=== PATIENT | female | born 1955 | race Caucasian/White ===

== ENCOUNTER 2021-03-06 10:23 | Inpatient (IN) | payer OTHER, MEDICAID, SELFPAY ==
[~2021-03-06] VITALS: Ht 170.2 cm; Wt 77.1 kg
[2021-03-06 10:23] VITALS: BP 105/55
--- NOTE | 2021-03-06 10:25 | NUR ---
65 y/o F BIBA from [facility] care "[facility]" c/o actively seizing upon EMS arrival. EMS reports 1 seizure on scene lasting 1 minute; 2nd seizure 1 minute in duration en route in which EMS gave Versed 5mg IM. Pt placed on 10L via NRB and 20G established to L AC. SpO2 98% on 1L by NRB. EMS states pt diagnosed with seizure two weeks ago; seen / evaluated and discharged without medications. AccuChek 148. Lopez in place; adult diaper in place. Pt placed onto desk monitor, gown. SpO2 96% on 10L by NRB, lung sounds CTA; RR 12. Bed locked in lowest position, side rails x 2. Seizure precautions remain in place. PMH: severe IDD, seizures, HTN, HLD, Oh's esophagus, osteoporosis Meds: benztropine, fureosemide, lisinopril, lorazepam, lovastatin, metoprolol, zyprexa, olanzapine, protonix, symbicort A: loxapine
--- NOTE | 2021-03-06 10:25 | NUR ---
Dr. Romero is evaluating pt at bedside
--- NOTE | 2021-03-06 10:30 | NUR ---
PT BIBA TO BED 07.
[2021-03-06] MEDS ORDERED: levETIRAcetam 1,000 MG in NACL 0.9% 100 ML IV ONE (10:40)
--- NOTE | 2021-03-06 10:45 | NUR ---
Blood sample and UA collected, walked to lab. CLS to let CPT Daria know
--- NOTE | 2021-03-06 11:09 | NUR ---
RAD at bedside
[2021-03-06 11:51] LABS: BASOPHILS # (AUTO) 0.1 K/uL (0.00-0.22); BASOPHILS % (AUTO) 1.3 % (0.0-2.0); EOSINOPHILS # (AUTO) 0.1 K/uL (0-0.4); EOSINOPHILS % (AUTO) 1.1 % (0.0-4.0); HEMATOCRIT 37.2 % (36-48); HEMOGLOBIN 12.2 g/dL (12.0-16.0); LYMPHOCYTES % (AUTO) 15.5 % (20.5-51.1); MEAN CORPUSCULAR HEMOGLOBIN 29 pg (27-31); MEAN CORPUSCULAR HGB CONC 33 g/dL (33-37); MEAN CORPUSCULAR VOLUME 87.5 fL (80-94); MONOCYTES # (AUTO) 0.4 K/uL (0.8-1.0); MONOCYTES % (AUTO) 5.8 % (1.7-9.3); NEUTROPHILS # (AUTO) 4.7 K/uL (1.8-7.7); NEUTROPHILS % (AUTO) 76.3 % (42.2-75.2); PLATELET COUNT (AUTO) 143 K/uL (140-450); RED BLOOD CELL COUNT(AUTO) 4.25 MIL/uL (4.20-5.40); RED CELL DISTRIBUTION WIDTH 16.3 % (11.6-13.7); WHITE BLOOD COUNT (AUTO) 6.2 K/uL (4.8-10.8)
[2021-03-06 12:02] LABS: APPEARANCE,URINE CLEAR (CLEAR); BILIRUBIN,URINE NEGATIVE (NEGATIVE); BLOOD, URINE 3+ (NEGATIVE); COLOR,URINE YELLOW (YELLOW); LEUKOCYTE ESTERASE ,URINE NEGATIVE (NEGATIVE); NITRITE, URINE NEGATIVE (NEGATIVE); PH,URINE 5.5 (5.0-9.0); UGLUCOSE NEGATIVE (NEGATIVE)
[2021-03-06 12:10] LABS: RBC,URINE 50-80 /HPF (0-5); WBC,URINE 0-5 /HPF (0-5)
[2021-03-06 12:11] LABS: ANION GAP 12.6 (8-16); CARBON DIOXIDE 28.2 mmol/L (21-32); CREATININE 0.9 mg/dL (0.6-1.3); POTASSIUM 3.8 mmol/L (3.5-5.1)
[2021-03-06 12:14] LABS: ALBUMIN 2.5 g/dL (3.4-5.0); TOTAL BILIRUBIN 0.2 mg/dL (0.0-1.0)
--- NOTE | 2021-03-06 12:30 | NUR ---
Pt on high flow with humidifier @ 8L. SpO2 99%
--- NOTE | 2021-03-06 12:44 | NUR ---
Spoke with Eva (power of ip attorney) who states she will try and send over the advance directive. Rubi provided with status update and requesting to speak with patient via telephone upon waking up. [phone]
--- NOTE | 2021-03-06 13:00 | NUR ---
Pt transported to CT by christine; placed onto 4L by KATHYA. SpO2 96%.
--- NOTE | 2021-03-06 13:15 | NUR ---
Pt returned from CT; placed back onto playground monitor. Seizure precautions remain in place. O2 in place.
[2021-03-06] MEDS ORDERED: AZITHROMYCIN 500 MG in DEXTROSE 5% 250 ML IV ONE (13:20)
[2021-03-06] MEDS ORDERED: cefTRIAXone 1,000 MG VIAL ONE (14:15)
[2021-03-06] MEDS ORDERED: DEXT 5% / NACL 0.45% 1,000 ML IV ONE (14:55)
[2021-03-06] MEDS ORDERED: AZITHROMYCIN 500 MG INJ VIAL IV ONE (15:39)
--- NOTE | 2021-03-06 17:32 | NUR ---
Spoke with caregiver from [facility]; states patient hospitalized at [facility] for new onset of seizures and discharged on without medications. Neurologist appointment pending. Caregiver reports during seizure episode, patient was asleep for one day before awaking and returning to baseline mentation.
--- NOTE | 2021-03-06 17:41 | NUR ---
EMIL (CAREGIVER) [phone] POINT OF CONTACT FOR STATUS UPDATES
--- NOTE | 2021-03-06 17:42 | NUR ---
EMIL STATES BASELINE: ALERT TO SOUNDS, NON-VERBAL, ABLE TO SIT IN CHAIR, EYE RESPONSIVE TO VOICE.
--- NOTE | 2021-03-06 18:54 | NUR ---
PT WITH ONE BOWEL MOVEMENT; LOS CARE PERFORMED AND DIAPER CHANGED.
--- NOTE | 2021-03-06 19:28 | NUR ---
Report and transfer of care endorsed to ANNA Hanks
--- NOTE | 2021-03-06 23:15 | NUR ---
pt soiled diaper. new diaper and pericare performed. assisted by clarisa
--- NOTE | 2021-03-06 23:55 | NUR ---
pt temp was taked nrectal and it was too low. warm blankets provided and socks put on. bear hugger was placed on patient.
[2021-03-07] MEDS ORDERED: LORazepam 2 MG/ML VIAL ONE (00:38)
[2021-03-07] MEDS ORDERED: LORazepam 2 MG/ML VIAL IVP PRN (00:40)
--- NOTE | 2021-03-07 01:00 | NUR ---
PT HAD SEIZURE. TURNED HEAD TO SIDE . MD NOTIFIED . SEIZURE PRECAUTIONS ENBALED . X2 SIDE RAILS UP PADDED . ORDER ATIVAN. VITAL SIGNS RETURNED TO BASELINE
--- NOTE | 2021-03-07 04:15 | NUR ---
RECTAL TEMP TAKEN PT STILL LOW TEMP. TEMP RAISED ON BEAR HUGGER. ALL VSS. PT IN A SEMI FOWLERS POSITION. EYES CLOSED.
--- NOTE | 2021-03-07 06:41 | NUR ---
PT TEM-P HORTENCIA BY 2 DEGREES. PT KEPT ON BEAR HUGGER WILL CONTINUE TO MONITOR
--- NOTE | 2021-03-07 07:57 | NUR ---
REPORT RECEIVED FROM PHUONG KENT FOR TRANSFER OF CARE
--- NOTE | 2021-03-07 07:59 | NUR ---
Pt report given to HALLIE. Transfer of care at this time.
--- NOTE | 2021-03-07 09:18 | NUR ---
PATIENT HAS BEEN SCREENED AND CATEGORIZED MODERATE NUTRITION RISK. PATIENT WILL BE SEEN WITHIN 3-5 DAYS OF ADMISSION. 03/09/21-03/11/21 REVIEWED BY MIGUEL VIZCARRA RD
--- NOTE | 2021-03-07 11:00 | NUR ---
PT PROVIDED WITH FRESH LINEN AND DIAPER. PT REPOSITIONED FOR COMFORT. BEAR HUGGER REMOVED DUE TO PATIENT RECTAL TEMP 99.9
--- NOTE | 2021-03-07 12:38 | NUR ---
Pt report given to ANNA VILLA. Transfer of care at this time.
--- NOTE | 2021-03-07 12:39 | NUR ---
RECEIVED REPORT FROM ANNA STERLING. TRANSFER OF CARE AT THIS TIME.
[2021-03-07] MEDS ORDERED: ONDANSETRON 4 MG/2 ML VIAL IVP PRN (12:40)
[2021-03-07] MEDS ORDERED: HYDROcodone/APAP 5/325 MG 1 TAB TAB PO PRN (12:40)
[2021-03-07] MEDS ORDERED: ACETAMINOPHEN 325 MG TAB PO PRN (12:40)
--- NOTE | 2021-03-07 16:00 | NUR ---
PT REPOSITIONED IN BED, HOB ELEVATED, VSS, WILL CONTINUE TO MONITOR.
--- NOTE | 2021-03-07 16:02 | NUR ---
OCCUPATIONAL THERAPIST REHAB MANAGER AT PT BEDSIDE.
[2021-03-07] MEDS ORDERED: cefTRIAXone 1,000 MG VIAL ONE (16:07)
[2021-03-07 17:11] LABS: CREATINE KINASE MB 3.1 ng/mL (0-3.6)
[2021-03-07] MEDS ORDERED: AZITHROMYCIN 500 MG INJ VIAL IV ONE (17:18)
[2021-03-07] MEDS: AZITHROMYCIN 500 MG in DEXTROSE 5% 250 ML IV SCH (17:27)
--- NOTE | 2021-03-07 19:32 | NUR ---
GAVE REPORT TO ANNA MEI. TRANSFER OF CARE AT THIS TIME.
--- NOTE | 2021-03-07 20:45 | NUR ---
SEIZURE NOTED, UPPER EXTREMETIES AND FACIAL TWITCHING. MEDICATED WITH ATIVAN ORDERED
[2021-03-07] MEDS: LORazepam 2 MG/ML VIAL IVP PRN (20:49)
--- NOTE | 2021-03-07 23:00 | NUR ---
RESTING QUIETLY. NO FURTHER SEIZURE ACTIVITY NOTED
--- NOTE | 2021-03-08 02:00 | NUR ---
RESTING IN BED WITH EYES CLOSED. RESPIRATIONS REGULAR AND UMLABORED
--- NOTE | 2021-03-08 08:32 | NUR ---
ECHO CARDIGRAM AT BEDSIDE.
[2021-03-08] MEDS: LORazepam 2 MG/ML VIAL IVP PRN (09:00)
--- NOTE | 2021-03-08 09:08 | NUR ---
1400 ML OF URINE EMPTED FROM F/C.
[2021-03-08 09:28] LABS: BASOPHILS % (AUTO) 0.6 % (0.0-2.0); EOSINOPHILS # (AUTO) 0.1 K/uL (0-0.4); EOSINOPHILS % (AUTO) 2.2 % (0.0-4.0); HEMATOCRIT 34.3 % (36-48); HEMOGLOBIN 11.5 g/dL (12.0-16.0); LYMPHOCYTES # (AUTO) 0.8 K/uL (2.5-16.5); LYMPHOCYTES % (AUTO) 16.3 % (20.5-51.1); MEAN CORPUSCULAR HEMOGLOBIN 29 pg (27-31); MEAN CORPUSCULAR HGB CONC 33 g/dL (33-37); MEAN CORPUSCULAR VOLUME 85.9 fL (80-94); MONOCYTES # (AUTO) 0.4 K/uL (0.8-1.0); MONOCYTES % (AUTO) 8.1 % (1.7-9.3); NEUTROPHILS # (AUTO) 3.6 K/uL (1.8-7.7); NEUTROPHILS % (AUTO) 72.8 % (42.2-75.2); PLATELET COUNT (AUTO) 172 K/uL (140-450); RED CELL DISTRIBUTION WIDTH 16.4 % (11.6-13.7)
[2021-03-08 09:34] LABS: ANION GAP 12.9 (8-16); CARBON DIOXIDE 26.9 mmol/L (21-32); CREATININE 0.5 mg/dL (0.6-1.3); POTASSIUM 3.8 mmol/L (3.5-5.1)
[2021-03-08 09:47] LABS: PHOSPHORUS 2.6 mg/dL (2.5-4.9)
[2021-03-08] MEDS ORDERED: levETIRAcetam 100 MG/ML VIAL IV ONE (11:29)
--- NOTE | 2021-03-08 12:47 | NUR ---
SISTER VANIA [phone].
--- NOTE | 2021-03-08 13:00 | NUR ---
SPOKE WITH DR GALICIA ABOUT SP RECOMENDATION FOR NG TUBE. WANTS THE PT TO BE REEVALUATED WHEN SHE IS MORE AWAKE AND THEN WE CAN CONSIDER NG TUBE.
[2021-03-08] MEDS ORDERED: AZITHROMYCIN 500 MG INJ VIAL IV ONE (14:43)
[2021-03-08 15:21] LABS: CREATINE KINASE MB 5.5 ng/mL (0-3.6)
[2021-03-08] MEDS: AZITHROMYCIN 500 MG in DEXTROSE 5% 250 ML IV SCH (15:38)
[2021-03-08] MEDS ORDERED: cefTRIAXone 1,000 MG VIAL ONE (16:20)
--- NOTE | 2021-03-08 19:28 | NUR ---
REPORT GIVEN TO NITHIN CASTILLO.
--- NOTE | 2021-03-08 22:30 | NUR ---
FED WITH PUREE FOOD, MASHED POTATO, TOLERATED WELL
--- NOTE | 2021-03-09 | NUR ---
Patient appears to be resting comfortably in bed. Vital Signs within normal limits. Respirations even and unlabored.
--- NOTE | 2021-03-09 01:45 | NUR ---
Rubi Pittman called up for update,shes the next of kin , to call from [place],
--- NOTE | 2021-03-09 07:31 | NUR ---
REPORT GIVEN TO ANITA
--- NOTE | 2021-03-09 07:51 | NUR ---
LAB AT BEDSIDE.
--- NOTE | 2021-03-09 08:02 | NUR ---
1500 ML URINE EMPTED FROM F/C.
--- NOTE | 2021-03-09 08:33 | NUR ---
PT FINISHED HER APPLE SAUCE FROM HER BREAKFAST TRAY BUT START CAUGHING WHEN GIVEN OATMEAL.
[2021-03-09 09:55] LABS: BASOPHILS % (AUTO) 0.5 % (0.0-2.0); EOSINOPHILS # (AUTO) 0.1 K/uL (0-0.4); EOSINOPHILS % (AUTO) 1.9 % (0.0-4.0); HEMOGLOBIN 12.5 g/dL (12.0-16.0); LYMPHOCYTES # (AUTO) 0.7 K/uL (2.5-16.5); LYMPHOCYTES % (AUTO) 12.2 % (20.5-51.1); MEAN CORPUSCULAR HEMOGLOBIN 29 pg (27-31); MEAN CORPUSCULAR HGB CONC 33 g/dL (33-37); MEAN CORPUSCULAR VOLUME 86.9 fL (80-94); MONOCYTES # (AUTO) 0.3 K/uL (0.8-1.0); MONOCYTES % (AUTO) 5.2 % (1.7-9.3); NEUTROPHILS # (AUTO) 4.4 K/uL (1.8-7.7); NEUTROPHILS % (AUTO) 80.2 % (42.2-75.2); PLATELET COUNT (AUTO) 185 K/uL (140-450); RED BLOOD CELL COUNT(AUTO) 4.37 MIL/uL (4.20-5.40); RED CELL DISTRIBUTION WIDTH 16.3 % (11.6-13.7); WHITE BLOOD COUNT (AUTO) 5.5 K/uL (4.8-10.8)
[2021-03-09 10:08] LABS: ANION GAP 13.5 (8-16); CARBON DIOXIDE 26.4 mmol/L (21-32); CREATININE 0.4 mg/dL (0.6-1.3); POTASSIUM 3.9 mmol/L (3.5-5.1)
--- NOTE | 2021-03-09 11:08 | NUR ---
PT TRASFERED TO BED 121B VIA [facility].
[2021-03-09] MEDS ORDERED: hydrALAZINE 20 MG/ML VIAL IVP PRN (11:25)
[2021-03-09 12:00] VITALS: BP 202/93
--- NOTE | 2021-03-09 12:00 | NUR ---
RECEIVED PT FROM CONSUMER LENDING MANAGER, PT IS MENTALLY CHALLENGE, WITH FLACCID EXTREMITIES, ON RA, IV LINE NOTED ON THE LEFT WRIST G. 22 ON SALINE LOCK, NO SIGN OF DISTRESS NOTED AND WILL CONTINUE TO MONITOR PT.
--- NOTE | 2021-03-09 12:19 | NUR ---
DC PLANNING: GLORIA SPOKE WITH THE PATIENTS SISTER EV BEAL BY PHONE ([phone]). SHE STATES THAT THE PATIENT HAS BEEN IN CARE SINCE SHE WAS 8 AND HAS BEEN AT [facility] FOR ABOUT 8 YEARS. SHE STATES THAT THE PATIENT HAS BEEN DECLINING AND HAS HAD PROBLEMS BREATHING AND GENERALIZED EDEMA AND NOW HAS NEW ONSET SZ DISORDER. SHE WOULD LIKE THE PATIENT TO BE REFERRED TO HOSPICE. GLORIA SPOKE WITH DR GALICIA, ATTENDING MD, ORDER TO REFER PATIENT TO [facility] ([phone]) GIVEN, REFERRAL FAXED TO THEM. GLORIA WILL FOLLOW. Addendum: 03/10/21 at 1200 by Hui Rojas CM DC PLANNING: GLORIA SPOKE WITH DANIEL AT [facility]([phone]), STATES SHE IS WAITING FOR RESCARE TO CONFIRM WHAT DME IS ALLOWED IN FACILITY. GLORIA THEN SPOKE WITH THE FACILITY AND ASKED THAT THE EQUAL EMPLOYMENT OPPORTUNITY OFFICER BRIANDA BE MADE AWARE THAT PATIENT IS READY TO DC AND IS PENDING HER APPROVAL OF HOSPICE ARRANGEMENTS. GLORIA WILL FOLLOW. Addendum: 03/10/21 at 1437 by Hui Rojas CM DC PLANNING: GLORIA SPOKE WITH [facility], THE [facility] HAS TO CHECK AT A REGIONAL LEVEL TO SEE WHAT DME IS ALLOWED IN THE FACILITY. THEY STATE THEY WILL CALL [facility] WHEN THEY HAVE AN ANSWER. GLORIA WILL FOLLOW FOR NEEDS. Addendum: 03/11/21 at 1152 by Hui Rojas DC PLANNING: GLORIA SPOKE WITH THE ATTENDING MD, PATIENT WITH POOR PO INTAKE, GI CONSULT WITH POSSIBLE PEG PLACEMENT BEING CONSIDERED. GLORIA ALSO SPOKE WITH BRIANDA, EQUAL EMPLOYMENT OPPORTUNITY OFFICER FOR THE [facility], THEY ARE SPEAKING WITH THE [facility] REGARDING THE PATIENTS FUTURE CARE. AN RN FROM THE [facility] WILL BE COMING TO EVALUATE THE PATIENT TO SEE WHAT SETTING IS APPROPRIATE FOR HER CONTINUED CARE GIVEN HER HEALTH DECLINE. GLORIA WILL WAIT FOR THE [facility] RECOMMENDATION AND WILL FOLLOW FOR NEEDS.
--- NOTE | 2021-03-09 12:24 | NUR ---
CALLED DR. AYSHA GALICIA AND INFORMED MD THAT PT'S BP IS 214/90 AND 202/93, DR. ONEIL MADE A TELEPHONE ORDER TO GIVE PT HYDRALAZINE 50MG IVP Q6H PRN FOR SBP OF ABOVE 160.
--- NOTE | 2021-03-09 13:15 | NUR ---
EEG IS BEING DONE TO PT NOW ORDERED BY DR. COTTON.
--- NOTE | 2021-03-09 14:08 | NUR ---
PT DESATURATE AT 87% AND O2 WAS PLACED TO PT AT 4L NC.
[2021-03-09] MEDS: AZITHROMYCIN 500 MG in DEXTROSE 5% 250 ML IV SCH (14:12)
[2021-03-09 20:00] VITALS: BP 102/66
--- NOTE | 2021-03-09 20:15 | NUR ---
ENDORSED PT TO NIGHT RN FOR CONTINUITY OF CARE.
--- NOTE | 2021-03-09 20:16 | NUR ---
RECEIVED REPORT FROM AM NURSE. PATIENT IS AWAKE RESTING IN BED. O2 AT 2L NC TOLERATING WELL. NO SOB NOTED RESPIRATION EVEN UNLABORED. ALL SAFETY PRECAUTIONS ARE IN PLACE. CALL LIGHT WITHIN REACH. FLACC 0. WILL CONTINUE TO MONITOR.
[2021-03-10] VITALS: BP 108/78
--- NOTE | 2021-03-10 03:10 | NUR ---
PATIENT SLEEPING NO SOB NOTED . BREATHING REGULAR UNLABORED. CALL LIGHT WITHIN REACH.
[2021-03-10 04:00] VITALS: BP 118/79
[2021-03-10 06:49] LABS: BASOPHILS % (AUTO) 0.4 % (0.0-2.0); EOSINOPHILS # (AUTO) 0.2 K/uL (0-0.4); EOSINOPHILS % (AUTO) 2.1 % (0.0-4.0); HEMATOCRIT 37.3 % (36-48); HEMOGLOBIN 12.5 g/dL (12.0-16.0); LYMPHOCYTES # (AUTO) 0.6 K/uL (2.5-16.5); LYMPHOCYTES % (AUTO) 6.8 % (20.5-51.1); MEAN CORPUSCULAR HEMOGLOBIN 29 pg (27-31); MEAN CORPUSCULAR HGB CONC 34 g/dL (33-37); MEAN CORPUSCULAR VOLUME 86.6 fL (80-94); MONOCYTES # (AUTO) 0.4 K/uL (0.8-1.0); MONOCYTES % (AUTO) 4.8 % (1.7-9.3); NEUTROPHILS # (AUTO) 7.3 K/uL (1.8-7.7); NEUTROPHILS % (AUTO) 85.9 % (42.2-75.2); PLATELET COUNT (AUTO) 203 K/uL (140-450); RED CELL DISTRIBUTION WIDTH 16.1 % (11.6-13.7); WHITE BLOOD COUNT (AUTO) 8.5 K/uL (4.8-10.8)
[2021-03-10 07:04] LABS: ANION GAP 14.7 (8-16); CARBON DIOXIDE 25.3 mmol/L (21-32); CREATININE 0.6 mg/dL (0.6-1.3)
--- NOTE | 2021-03-10 07:37 | NUR ---
ENDORSED PATIENT TO AM NURSE FOR CONTINUITY OF CARE. PATIENT IN STABLE CONDITION.
--- NOTE | 2021-03-10 07:37 | NUR ---
RECEIVED REPORT FROM PIPELINE WELDER NURSE FOR CONTINUITY OF CARE. PT IN BED AT THIS TIME. RESPIRATIONS ARE EVEN AND UNLABORED. NO SIGNS OF DISTRESS NOTED. CALL LIGHT WITHIN REACH. ALL SAFETY MEASURES IN PLACE. WILL CONTINUE TO MONITOR.
[2021-03-10 08:00] VITALS: BP 138/82
[2021-03-10] MEDS: amLODIPine 5 MG TAB PO SCH (08:44)
--- NOTE | 2021-03-10 08:44 | NUR ---
ADMINISTERED SCHEDULED MEDICATIONS. EDUCATED PT ON MEDS ADMINISTERED. NO RESPONSE. CALL LIGHT WITHIN REACH. ALL SAFETY MEASURES IN PLACE. WILL CONTINUE TO MONITOR.
--- NOTE | 2021-03-10 11:20 | NUR ---
ASSISTED WITH CHANGING AND REPOSITIONING PT. PT TOLERATED WELL. WILL CONTINUE TO MONITOR.
--- NOTE | 2021-03-10 13:04 | NUR ---
03/10/21 RD INITIAL ASSESSMENT COMPLETED PLEASE REFER TO NUTRITION ASSESSMENT UNDER CARE ACTIVITY FOR ESTIMATED NUTRITIONAL NEEDS. 1. RECOMMEND VITAL AF 1.2 @ 55 ML/HR -WATER FLUSH 150 ML Q6H -START AT 10 ML/HR AND INCREASE BY 10 ML Q4H TOLERATED -WILL PROVIDE 1584 KCAL, 99 GM PROTEIN AND 1670 ML WATER, MEETING 100% OF ESTIMATED NUTRITIONAL GOALS 2. MONITOR GI SYMPTOMS 3. RD TO FOLLOW-UP 2-3 DAYS, HIGH RISK (ELEVATED D/T TUBE FEEDING) RAJESH PICKARD RD
--- NOTE | 2021-03-10 13:30 | NUR ---
NG TUBE INSERTED. PT TOLERATED WELL. WILL CONTINUE TO MONITOR.
[2021-03-10] MEDS: AZITHROMYCIN 500 MG in DEXTROSE 5% 250 ML IV SCH (14:06)
--- NOTE | 2021-03-10 14:45 | NUR ---
ORDER TO INSERT NG TUBE. WILL INSERT AND RE-ASSESS.
--- NOTE | 2021-03-10 15:00 | NUR ---
PT PULLED OUT NG TUBE. WILL ATTEMPT TO RE-INSERT NG TUBE.
--- NOTE | 2021-03-10 15:30 | NUR ---
NG TUBE INSERTED. PT TOLERATED WELL. ORDERED CHEST X RAY TO VERIFY PLACEMENT. WILL CONTINUE TO MONITOR.
[2021-03-10 16:00] VITALS: BP 132/68
--- NOTE | 2021-03-10 16:35 | NUR ---
PT PULLED OUT NG TUBE ONCE AGAIN. WILL ATTEMPT TO RE-INSERT NG TUBE. WILL CONTINUE TO MONITOR.
--- NOTE | 2021-03-10 19:05 | NUR ---
PT IS IN BED RESTING AT THIS TIME. RESPIRATIONS ARE EVEN AND UNLABORED. NO SIGNS OF DISTRESS NOTED. PT IS STABLE. WILL ENDORSE TO ETCHER PHOTOENGRAVING NURSE.
--- NOTE | 2021-03-10 19:30 | NUR ---
RECEIVED BEDSIDE REPORT FROM DAY SHIFT RN FOR CONTINUITY OF CARE. PT IS SLEEPING IN BED. NO NG TUBE PRESENT. PT IS ON NC 2L. PT IS NOT IN ANY DISTRESS. BED AT THE LOWEST POSITION. HEAD OF BED RAISED. WILL CONTINUE TO MONITOR THE PT.
--- NOTE | 2021-03-10 19:45 | NUR ---
PT GOT A NEW NG TUBE PLACED. PT IS NOT IN ANY DISTRESS. CXR ORDER FOR NG TUBE PLACEMENT. WILL CONTINUE TO MONITOR THE PT.
[2021-03-10 20:00] VITALS: BP 139/68
--- NOTE | 2021-03-11 00:16 | NUR ---
PT IS SLEEPING IN BED. PT IS NOT IN ANY DISTRESS. NC 2L. CHEST RISE AND FALL NOTED. BED AT THE LOWEST POSITION. SEIZURE PRECAUTIONS IN PLACE. ALL SAFETY MEASURES TAKEN. WILL CONTINUE TO MONITOR THE PT.
--- NOTE | 2021-03-11 03:35 | NUR ---
PT IS SLEEPING IN BED. PT IS NOT IN ANY DISTRESS. NO SOB OR LABORED BREATHING NOTED. BED AT THE LOWEST POSITION. HEAD OF BED RAISED. SEIZURE PRECAUTIONS IN PLACE. WILL CONTINUE TO MONITOR THE PT.
[2021-03-11] MEDS: DEXT 5% / NACL 0.45% 1,000 ML IV SCH ×3 (04:00→20:10)
[2021-03-11 06:43] LABS: BASOPHILS % (AUTO) 0.5 % (0.0-2.0); EOSINOPHILS # (AUTO) 0.3 K/uL (0-0.4); EOSINOPHILS % (AUTO) 2.9 % (0.0-4.0); HEMATOCRIT 34.1 % (36-48); HEMOGLOBIN 11.7 g/dL (12.0-16.0); LYMPHOCYTES # (AUTO) 0.6 K/uL (2.5-16.5); MEAN CORPUSCULAR HEMOGLOBIN 30 pg (27-31); MEAN CORPUSCULAR HGB CONC 34 g/dL (33-37); MEAN CORPUSCULAR VOLUME 86.4 fL (80-94); MONOCYTES # (AUTO) 0.4 K/uL (0.8-1.0); MONOCYTES % (AUTO) 3.8 % (1.7-9.3); NEUTROPHILS # (AUTO) 7.9 K/uL (1.8-7.7); NEUTROPHILS % (AUTO) 85.8 % (42.2-75.2); PLATELET COUNT (AUTO) 200 K/uL (140-450); RED BLOOD CELL COUNT(AUTO) 3.95 MIL/uL (4.20-5.40); RED CELL DISTRIBUTION WIDTH 16.7 % (11.6-13.7); WHITE BLOOD COUNT (AUTO) 9.2 K/uL (4.8-10.8)
[2021-03-11 07:01] LABS: ALBUMIN 2.4 g/dL (3.4-5.0); ANION GAP 12.1 (8-16); CARBON DIOXIDE 26.6 mmol/L (21-32); CREATININE 0.5 mg/dL (0.6-1.3); POTASSIUM 3.7 mmol/L (3.5-5.1); TOTAL BILIRUBIN 0.2 mg/dL (0.0-1.0)
--- NOTE | 2021-03-11 07:15 | NUR ---
ENDORSED PT TO DAY SHIFT RN FOR CONTINUITY OF CARE. PT IS STABLE.
--- NOTE | 2021-03-11 07:18 | NUR ---
RECEIVED REPORT FROM ENGINEER SYSTEM ADMINISTRATOR NURSE FOR CONTINUITY OF CARE. PT IS IN BED SLEEPING AT THIS TIME.RESPIRATIONS ARE EVEN AND UNLABORED. NO SIGNS OF DISTRESS NOTED. CALL LIGHT WITHIN REACH. ALL SAFETY MEASURES IN PLACE. WILL CONTINUE TO MONITOR.
[2021-03-11 08:00] VITALS: BP 122/60
--- NOTE | 2021-03-11 08:29 | NUR ---
PT HAS SOFT RESTRAINTS IN PLACE DUE TO PT CONTINUES TO PULL OUT NG TUBE. WILL CONTINUE TO MONITOR.
[2021-03-11] MEDS: amLODIPine 5 MG TAB PO SCH (09:55)
[2021-03-11] MEDS: AZITHROMYCIN 500 MG in DEXTROSE 5% 250 ML IV SCH (14:00)
[2021-03-11] MEDS: LORazepam 2 MG/ML VIAL IVP PRN (14:17)
--- NOTE | 2021-03-11 14:20 | NUR ---
PT HAD SIEZURE 30 SECONDS PATIENT DESATURATED TO 65% PATIENT PLACED ON NONREBREATHER 10 L, PT TOLERATINW EELL 93% , PRN MEDICATION GIVEN AT THIS TIME ALL SAFETY MEASURES ARE IN PLACE
--- NOTE | 2021-03-11 15:00 | NUR ---
MEDICATIONS GIVEN PER MD ORDER, PT EDUCATED AND VERBALIZED UNDERSTANDING ALL SAFETY MEASURES ARE IN PLACE
[2021-03-11 16:00] VITALS: BP 119/65
--- NOTE | 2021-03-11 18:17 | NUR ---
PT'S SISTER NAME EMIL CALL SHE SAID SHE WANTS TO KNOW THE ABOUT HER NUTRITION INTAKE , SHE CONCERN ABOUT THE PT'S DIET . SHE WANTS TO TALK THE NURSE BIJU . I TRIED TO CONNECT BIJU MOBILE PHONE SO MANY TIMES , BUT PER PT'S SISTER NOBODY ANSWER THE CALL . THE PT'S SISTER CALL ME AGAIN AND SHE SAID NOBODY ANSWERING THE CALL . I OFFER TO PT.'S SISTER IF IT IS OK TO HER TO GIVE ME HER CONTACT NUMBERS AND I WILL GIVE TO BIJU HER CONTACT NUMBERS TO BIJU AND BIJU WILL GIVE HER A CALL ONCE SHE GOT TIME . Addendum: 03/11/21 at 1838 by Elza Paz RN THE WORD 'Kathy STEIN IN THE ABOVE NURSE'S NOTES IS AN ERROR ENTRY , INSTEAD OF NIMESH PARRA
--- NOTE | 2021-03-11 18:22 | NUR ---
I GAVE TO BIJU THE CONTACT NUMBERS OF PT.'S SISTER AND I INFORMING BIJU ABOUT THE PT'S SISTER CONCERN - BIJU SAID SHE WILL CALL LATER . I REMINDING TO BIJU DON'T FORGET TO CALL THE SISTER . BIJU VERBALIZES UNDERSTANDING .
--- NOTE | 2021-03-11 18:35 | NUR ---
NG TUBE REMOVED PER ORDERS. PT TOLERATED WELL. WILL CONTINUE TO MONITOR.
--- NOTE | 2021-03-11 18:42 | NUR ---
SPOKE WITH PT SISTER, NIMESH. SISTER STATED THAT SHE HAS BEEN IN CONTACT WITH , AND HAS INFORMED DR THAT PER PT POLST, NO NG OR GT TUBES IN PLACE. COMFORT MEASURES ONLY. NIMESH THEN STATED THAT DUE TO PT CONDITION, SHE IS UNSURE OF WHEN PT WILL PASS AWAY, SO SHE WOULD LIKE FOR STAFF TO CONTACT HER INCASE PT PASSES AWAY. WILL ENDORSE TO NEXT SHIFT.
--- NOTE | 2021-03-11 19:22 | NUR ---
ENDORSED PT TO AWNING INSTALLER NURSE FOR CONTINUITY OF CARE. RESPIRATIONS ARE EVEN. JUST SUCTIONED PT. NO SIGNS OF DISTRESS NOTED.
--- NOTE | 2021-03-11 19:30 | NUR ---
RECEIVED BEDSIDE REPORT FROM DAY SHIFT RN. PT IS SLEEPING IN BED. NONREBREATHER MASK AT 7L. COMFORT MEASURES PROVIDED. ALL SAFETY MEASURES TAKEN. WILL CONTINUE TO MONITOR THE PT.
[2021-03-11 20:00] VITALS: BP 145/79
--- NOTE | 2021-03-11 22:10 | NUR ---
PT SLEEPING IN BED. PT IS NOT IN ANY DISTRESS. BREATHING RHYTHMIC AND SYMMETRICAL. SUCTION PROVIDED NEEDED. COMFORT MEASURES TAKEN. BED AT THE LOWEST POSITION. HEAD OF BED RAISED. ALL SAFETY MEASURES TAKEN. WILL CONTINUE TO MONITOR THE PT.
--- NOTE | 2021-03-12 01:24 | NUR ---
PT IS ASLEEP. PT IS NOT IN ANY DISTRESS. BREATHING SYMMETRICAL AND UNLABORED. SUCTION PROVIDED NEEDED. COMFORT MEASURES PROVIDED. BED AT THE LOWEST POSITION. HEAD OF BED RAISED. ALL SAFETY MEASURES TAKEN. WILL CONTINUE TO MONITOR THE PT.
[2021-03-12 04:00] VITALS: BP 125/73
--- NOTE | 2021-03-12 04:28 | NUR ---
PT IS ASLEEP. NO SIGNS OF DISTRESS. BREATHING RHYTHMIC AND SYMMETRICAL. SEIZURE PRECAUTIONS IN PLACE. COMFORT MEASURES TAKEN. WILL CONTINUE TO MONITOR THE PT.
[2021-03-12] MEDS: DEXT 5% / NACL 0.45% 1,000 ML IV SCH (05:16)
--- NOTE | 2021-03-12 06:55 | NUR ---
CALLED FAMILY TO VERIFY PT IS NOT SUPPOSE TO BE ON ANY IVF. FAMILY DOES NOT WANT PT TO BE ON ANY FEEDING OR FLUIDS. PT STILL HAS IVF ORDER. MESSAGED. DR. GALICIA TO DC'D THE ORDER. WILL FOLLOW UP.
--- NOTE | 2021-03-12 07:00 | NUR ---
FAMILY ASK FOR POLST IF ITS ON THE CHART. POLST IS NOT IN THE CHART. PT WANTS TO SEND A COPY OF THE POLST TO THE HOSPITAL. GAVE THEM THE FAX NUMBER TO SEND IT TO THE HOSPITAL.
[2021-03-12 07:25] LABS: BASOPHILS % (AUTO) 0.1 % (0.0-2.0); EOSINOPHILS % (AUTO) 0.3 % (0.0-4.0); HEMATOCRIT 34.1 % (36-48); HEMOGLOBIN 11.3 g/dL (12.0-16.0); LYMPHOCYTES # (AUTO) 0.3 K/uL (2.5-16.5); LYMPHOCYTES % (AUTO) 2.3 % (20.5-51.1); MEAN CORPUSCULAR HEMOGLOBIN 29 pg (27-31); MEAN CORPUSCULAR HGB CONC 33 g/dL (33-37); MEAN CORPUSCULAR VOLUME 86.8 fL (80-94); MONOCYTES # (AUTO) 0.3 K/uL (0.8-1.0); MONOCYTES % (AUTO) 2.8 % (1.7-9.3); NEUTROPHILS # (AUTO) 11.2 K/uL (1.8-7.7); NEUTROPHILS % (AUTO) 94.5 % (42.2-75.2); PLATELET COUNT (AUTO) 193 K/uL (140-450); RED BLOOD CELL COUNT(AUTO) 3.93 MIL/uL (4.20-5.40); RED CELL DISTRIBUTION WIDTH 16.8 % (11.6-13.7); WHITE BLOOD COUNT (AUTO) 11.8 K/uL (4.8-10.8)
--- NOTE | 2021-03-12 07:30 | NUR ---
ENDORSED TO DAY SHIFT RN FOR CONTINUITY OF CARE. PT IS STABLE.
[2021-03-12 07:34] LABS: ANION GAP 12.2 (8-16); CARBON DIOXIDE 24.4 mmol/L (21-32); CREATININE 0.6 mg/dL (0.6-1.3); POTASSIUM 3.6 mmol/L (3.5-5.1)
[2021-03-12 08:00] VITALS: BP 131/65
[2021-03-12] MEDS ORDERED: MORPHINE SULFATE 50 MG in NACL 0.9% 45 ML IV SCH (08:25)
[2021-03-12] MEDS: amLODIPine 5 MG TAB PO SCH (09:00)
--- NOTE | 2021-03-12 09:21 | NUR ---
SCHEDULED MEDICATIONS DUE NOT GIVEN. PATIENT NPO AND TO BE ON COMFORT CARE. AWAITING FOR MORPHINE DRIP FROM PHARMACY.
[2021-03-12] MEDS ORDERED: MORPHINE SULFATE 50 MG in NACL 0.9% 45 ML IV PRN (09:45)
[2021-03-12] MEDS: MORPHINE SULFATE 100 MG in NACL 0.9% 90 ML IV PRN (10:13)
[2021-03-12] MEDS ORDERED: NACL 0.9% 500 ML IV ONE (15:00)
[2021-03-12 16:00] VITALS: BP 62/31
--- NOTE | 2021-03-12 19:23 | NUR ---
GAVE REPORT TO FOUNTAIN DISPENSER NURSE FOR CONTINUITY OF CARE. PATIENT ON MORPHINE DRIP WITH COMFORT CARE.
--- NOTE | 2021-03-12 19:30 | NUR ---
RECEIVED BEDSIDE REPORT FROM DAY SHIFT RN. PT IS SLEEPING IN BED. SISTER IS BY BEDSIDE. MORPHINE DRIP RUNNING MD ORDER. COMFORT MEASURES TAKEN. BED AT THE LOWEST POSITION. HEAD OF BED RAISED. WILL CONTINUE TO MONITOR THE PT.
[2021-03-12 20:00] VITALS: BP 69/34
--- NOTE | 2021-03-12 23:26 | NUR ---
PT IS SLEEPING. PT IS NOT IN ANY DISTRESS. SISTER STILL BY BEDSIDE. MORPHINE DRIP RUNNING MD ORDER. ALL SAFETY PRECAUTIONS TAKEN. COMFORT MEASURES TAKEN. WILL CONTINUE TO MONITOR THE PT.
--- NOTE | 2021-03-13 02:03 | NUR ---
PT IS SLEEPING IN BED. PT IS NOT IN ANY DISTRESS. BREATHING UNLABORED AND SYMMETRICAL. MORPHINE DRIP RUNNING MD ORDER. COMFORT MEASURES TAKEN. WILL CONTINUE TO MONITOR THE PT.
[2021-03-13] MEDS: MORPHINE SULFATE 100 MG in NACL 0.9% 90 ML IV PRN ×5 (03:06→13:10)
[2021-03-13 04:00] VITALS: BP 75/37
--- NOTE | 2021-03-13 07:30 | NUR ---
ENDORSED PT TO DAY SHIFT RN FOR CONTINUITY OF CARE. PT IS STABLE.
--- NOTE | 2021-03-13 07:35 | NUR ---
RECEIVED BEDSIDE REPORT FROM PUBLIC SAFETY DISPATCHER RN. PT IS SLEEPING IN BED. SISTER IS BY BEDSIDE. MORPHINE DRIP RUNNING MD ORDER. COMFORT MEASURES TAKEN. PLAN OF CARE DISCUSSED. BED AT THE LOWEST POSITION. HEAD OF BED RAISED. WILL CONTINUE TO MONITOR THE PT.
[2021-03-13 08:00] VITALS: BP 65/32
[2021-03-13] MEDS: amLODIPine 5 MG TAB PO SCH (08:07)
--- NOTE | 2021-03-13 10:15 | NUR ---
CHECKED ON PATIENT. PT IS STABLE. NO SIGNS OF DISTRESS NOTED. WILL CONTINUE TO MONITOR.
[2021-03-13] MEDS ORDERED: NACL 0.9% IV PRN ×2 (13:00→13:10)
[2021-03-13] MEDS ORDERED: MORPHINE SULFATE IV PRN ×2 (13:00→13:10)
[2021-03-13] MEDS ORDERED: MORPHINE SULFATE 500 MG in NACL 0.9% 500 ML IV SCH (14:00)
--- NOTE | 2021-03-13 14:43 | NUR ---
CHECKED ON PATIENT. NO SIGNS OF DISTRESS NOTED. WILL CONTINUE TO MONITOR.
--- NOTE | 2021-03-13 15:30 | NUR ---
DR. GALICIA AT PATIENT'S BEDSIDE SPEAKING TO PATIENT'S FAMILY
[2021-03-13] MEDS ORDERED: LORazepam 2 MG/ML VIAL IVP SCH (15:40)
--- NOTE | 2021-03-13 15:40 | NUR ---
RECEIVED NEW ORDERS FROM DR. GALICIA.
--- NOTE | 2021-03-13 15:59 | NUR ---
ADMINISTERED ATIVAN 5 MG IVP PER MD ORDER.
[2021-03-13 16:00] VITALS: BP 54/28
--- NOTE | 2021-03-13 16:20 | NUR ---
PATIENT TIME OF WAS 1620. FAMILY IS AWARE AND AT BEDSIDE. WILL CALL DIRECTOR SOCIAL WELFARE AND [facility].
--- NOTE | 2021-03-13 17:10 | NUR ---
CONTACTED SB SCHOOL BASED THERAPIST AND REPORTED PATIENT . AWAITING FOR SCHOOL BASED THERAPIST TO CALL BACK.
--- NOTE | 2021-03-13 17:26 | NUR ---
RECEIVE CALL FROM ASTER VEE COLLAR FOLDER OPERATOR AND HE CLEARED PATIENT. NO CASE NUMBER PROVIDED.
--- NOTE | 2021-03-13 17:26 | NUR ---
CONTACTED [facility] AND INFORMED THEM OF PATIENT TIME OF . RECEIVED CASE NUMBER FROM [facility]. CASE NUMBER IS [id number].
--- NOTE | 2021-03-13 17:30 | NUR ---
PATIENT BODY RELEASED. WILL PREPARE PATIENT BODY AND SEND TO THE [facility]
--- NOTE | 2021-03-13 18:30 | NUR ---
PATIENT TRANSFERRED TO THE [facility].
--- NOTE | 2021-03-13 19:45 | NUR ---
ENDORSED TO CARAMEL MAKER RIVERBOAT CAPTAIN REGARDING THE MORTUARY SITUATION. RIVERBOAT CAPTAIN AWARE OF THE SITUATION AND WILL FOLLOW UP TOMORROW
--- NOTE | 2021-03-15 14:10 | NUR ---
CALL PLACE TO EV [phone], PER EV , I NEED TO CALL BRIANDA SINCE SHE IS THE ONE RESPONSIBLE CALL PLACE TO [facility] ( ADMIN) [phone] PER BRIANDA SHE WILL CALL THE [facility] AND WILL CALL ME BACK.
--- NOTE | 2021-03-15 18:22 | NUR ---
CALL PLACE TO KIANNA AGAIN, LEAVE MESSAGE REGARDING THE MORTUARY, KIANNA WILL CALL ME BACK.
--- NOTE | 2021-03-15 18:32 | NUR ---
PER KIANNA, SHE WILL UPDATE US TOMORROW FOR THE MORTUARY, SHE [facility]ING [facility],
== END 2021-03-13 16:20 | DRG 193 ==
LOC: MED 10:23 → MTU 15:03
PROVIDERS: ADMIT Preventive Medicine Preventive Medicine/Occupational Environmental Medicine; ATTEND Preventive Medicine Preventive Medicine/Occupational Environmental Medicine
DX: J18.9 Pneumonia, unspecified organism (principal); I21.4 Non-ST elevation (NSTEMI) myocardial infarction; E43 Unspecified severe protein-calorie malnutrition; J96.00 Acute respiratory failure, unspecified whether with hypoxia or hypercapnia; I24.8 Other forms of acute ischemic heart disease; G40.909 Epilepsy, unspecified, not intractable, without status epilepticus; I10 Essential (primary) hypertension; F79 Unspecified intellectual disabilities; I46.9 Cardiac arrest, cause unspecified; K22.70 Barrett's esophagus without dysplasia; M81.0 Age-related osteoporosis without current pathological fracture; Z66 Do not resuscitate; E66.9 Obesity, unspecified; R73.9 Hyperglycemia, unspecified; R74.01 Elevation of levels of liver transaminase levels; Z20.822 Contact with and (suspected) exposure to COVID-19; Z68.26 Body mass index [BMI] 26.0-26.9, adult; Z51.5 Encounter for palliative care; Z88.8 Allergy status to other drugs, medicaments and biological substances
CPT/HCPCS: 36415; 70450; 71045; 80048; 80053; 80076; 81001; 82550; 82553; 83690; 83735; 84100; 84484; 85025; 85651; 86140; 87081; 92526; 92610; 93005; 96365; 96367; 96375; 99291; J0360; J0456; J0696; J1953; J2060; J2270; J7030; J7060; Q0092